=== PATIENT | female | born 1965 | race Caucasian/White ===

== ENCOUNTER 2023-05-15 15:27 | Inpatient (IN) | payer MEDICAID ==
[~2023-05-15] VITALS: Ht 149.9 cm; Wt 106.6 kg
[2023-05-15 16:13] LABS: BASOPHILS # (AUTO) 0.2 X10'3 (0-0.2); BASOPHILS % (AUTO) 1.2 % (0-1); EOSINOPHILS # (AUTO) 0.2 X10'3 (0-0.9); EOSINOPHILS % (AUTO) 1.2 % (0-6); HEMATOCRIT 43.1 % (35.0-45.0); HEMOGLOBIN 14.2 g/dl (12.0-16.0); LYMPHOCYTES # (AUTO) 3.4 X10'3 (1.1-4.8); LYMPHOCYTES % (AUTO) 20.6 % (21-51); MEAN CORPUSCULAR HEMOGLOBIN 26.5 PG (27.0-31.0); MEAN CORPUSCULAR HGB CONC 32.9 g/dL (33.0-36.5); MEAN CORPUSCULAR VOLUME 80.5 FL (78-98); MEAN PLATELET VOLUME 8.1 FL (7.4-10.4); MONOCYTES # (AUTO) 0.6 X10'3 (0-0.9); MONOCYTES % (AUTO) 3.4 % (2-12); NEUTROPHILS # (AUTO) 12.3 X10'3 (1.8-7.7); NEUTROPHILS % (AUTO) 73.6 % (42-75); PLATELET COUNT 461 X10'3 (140-440); RED BLOOD COUNT 5.35 X10'6 (4.20-5.60); RED CELL DISTRIBUTION WIDTH 16.1 % (11.5-14.5); WHITE BLOOD COUNT 16.6 X10'3 (4.5-11.0)
[2023-05-15 16:34] LABS: ALANINE AMINOTRANSFERASE 24 U/L (12-78); ALBUMIN 3.9 G/DL (3.4-5.0); ALBUMIN/GLOBULIN RATIO 1.1 (1.1-1.5); ALKALINE PHOSPHATASE 88 IU/L (46-116); ANION GAP 15 (8-16); ASPARTATE AMINO TRANSFERASE 13 U/L (10-37); BILIRUBIN,TOTAL 0.3 MG/DL (0.1-1.0); BLOOD UREA NITROGEN 8 MG/DL (7-18); CALCIUM 8.8 MG/DL (8.5-10.1); CHLORIDE 101 MMOL/L (99-107); CREATININE 0.89 MG/DL (0.40-0.90); GLUCOSE 198 MG/DL (70-104); POTASSIUM 3.1 MMOL/L (3.5-5.1); SODIUM 136 MMOL/L (135-145); TOTAL CARBON DIOXIDE 20.2 MMOL/L (24-32); TOTAL PROTEIN 7.5 G/DL (6.4-8.2); eCRCL 48 ML/MIN; eGFR 65 ML/MIN
[2023-05-15 16:35] LABS: PRO BRAIN NATRIURETIC PEPTIDE 63 PG/ML (0-125)
[2023-05-15 17:48] VITALS: TEMP 98.2
[2023-05-15] MEDS ORDERED: potassium Cl 20 mEq SR tablet PO STA (19:15)
[2023-05-15] MEDS ORDERED: azithromycin 250mg tablet PO ONE (19:25)
[2023-05-15] MEDS ORDERED: acetaminophen 325mg tablet PO ONE (19:25)
[2023-05-15] MEDS ORDERED: normal saline 1000ml 1,000 ML IV SCH ×2 (19:25→22:35)
[2023-05-15] MEDS ORDERED: LORazepam 1 MG tablet PO ONE (19:25)
[2023-05-15] MEDS ORDERED: ondansetron 4mg rapidly disintigrating tab PO ONE ×2 (19:45→21:35)
[2023-05-15] MEDS ORDERED: PANT20TA2 PO (19:52)
[2023-05-15] MEDS ORDERED: HYDR25CA PO (19:52)
[2023-05-15] MEDS ORDERED: ACET-812 PO (19:52)
[2023-05-15] MEDS ORDERED: AZIT250T PO (19:52)
[2023-05-15] MEDS ORDERED: ketorolac trometh. 30mg/ml inj. IV ONE (20:15)
[2023-05-15] MEDS ORDERED: famotidine/PF 10 mg/ml inj IV ONE (20:15)
[2023-05-15] MEDS ORDERED: LORazepam 2 mg/ml vial IV ONE (20:15)
[2023-05-15] MEDS ORDERED: ondansetron inj. 24 MG in normal saline 250ml IV soln 228 ML IV SCH (20:15)
[2023-05-15] MEDS ORDERED: azithromycin/NS 500mg/250ml 250 ML IV ONE (20:15)
[2023-05-15] MEDS ORDERED: PROM118S5 PO (20:21)
[2023-05-15] MEDS ORDERED: ONDA8TAB13 PO (20:21)
[2023-05-15] MEDS ORDERED: haloperidol lactate 5mg/ml inj IM ONE (21:35)
[2023-05-15] MEDS ORDERED: CefTRIAXone/D5W-Rocephin 1gm 50 ML IV ONE (22:20)
[2023-05-15] MEDS ORDERED: diphenhydrAMINE 50 mg/ml inj IV ONE (22:20)
[2023-05-15] MEDS ORDERED: proCHLORperazine 10 MG/2 ml inj IV ONE (22:45)
[2023-05-15] MEDS ORDERED: ondansetron/PF 4mg/2ml inj IV ONE (22:45)
[2023-05-15] MEDS ORDERED: iohexol 300mg/ml 100ml inj. ONE (22:47)
[2023-05-15] MEDS ORDERED: mag hydrox/Alum hydrox/simeth 30ml oral suspension PO PRN (23:50)
[2023-05-15] MEDS ORDERED: ondansetron/PF 4mg/2ml inj IV PRN (23:50)
[2023-05-15] MEDS ORDERED: acetaminophen 325mg tablet PO PRN (23:50)
[2023-05-15] MEDS ORDERED: metoclopramide 5 mg/ml inj IV PRN (23:50)
[2023-05-15] MEDS ORDERED: magnesium 4gm in 100ml NS 100 ML IV PRN (23:50)
[2023-05-15] MEDS ORDERED: magnesium Cl slow-release 64mg tablet PO PRN (23:50)
[2023-05-15] MEDS ORDERED: morphine 2 MG/ML inj. syringe IV PRN (23:50)
[2023-05-15] MEDS ORDERED: magnesium 2GM in 50ml NS 50 ML IV PRN (23:50)
[2023-05-15] MEDS ORDERED: magnesium hydroxide 30ml (MOM) UD suspension PO PRN (23:50)
[2023-05-15] MEDS ORDERED: potassium Cl 40MEQ/1/2NS 520ml 520 ML IV PRN (23:50)
[2023-05-15] MEDS ORDERED: potassium Cl 20 mEq SR tablet PO PRN ×2 (23:50)
[2023-05-15] MEDS ORDERED: SEMA1PEN3 SUBCUT (23:53)
[2023-05-15] MEDS ORDERED: GABA-530 PO (23:57)
[2023-05-15] MEDS ORDERED: MORP50CA PO (23:57)
[2023-05-16] MEDS: normal saline 1000ml 1,000 ML IV SCH ×2 (00:24→09:53)
[2023-05-16] MEDS: morphine 2 MG/ML inj. syringe IV PRN ×3 (00:38→14:20)
[2023-05-16] MEDS ORDERED: insulin Lispro (HumaLOG) vial - multi-dose SQ SCH (01:30)
[2023-05-16] MEDS ORDERED: dextrose 50%-water 50ml dispensing syringe IV PRN ×2 (01:30)
[2023-05-16] MEDS ORDERED: DEXTROSE 15 GM of carb/4 tabs (each vial/BOTTLE has 4 tablets) PO PRN ×2 (01:30)
[2023-05-16] MEDS ORDERED: glucagon, human recombinant 1mg kit SUBCUT PRN (01:30)
[2023-05-16] MEDS ORDERED: K and/or MAG REPLACEMENT MC SCH (08:00)
[2023-05-16] MEDS ORDERED: enoxaparin 40mg/0.4ml syringe SUBCUT SCH (08:00)
[2023-05-16 08:40] LABS: BASOPHILS # (AUTO) 0.1 X10'3 (0-0.2); BASOPHILS % (AUTO) 0.8 % (0-1); EOSINOPHILS # (AUTO) 0.1 X10'3 (0-0.9); HEMATOCRIT 40.3 % (35.0-45.0); HEMOGLOBIN 13.4 g/dl (12.0-16.0); LYMPHOCYTES # (AUTO) 1.8 X10'3 (1.1-4.8); MEAN CORPUSCULAR HEMOGLOBIN 26.5 PG (27.0-31.0); MEAN CORPUSCULAR HGB CONC 33.4 g/dL (33.0-36.5); MEAN CORPUSCULAR VOLUME 79.4 FL (78-98); MONOCYTES # (AUTO) 0.5 X10'3 (0-0.9); MONOCYTES % (AUTO) 3.5 % (2-12); NEUTROPHILS # (AUTO) 10.5 X10'3 (1.8-7.7); NEUTROPHILS % (AUTO) 80.7 % (42-75); PLATELET COUNT 377 X10'3 (140-440); RED BLOOD COUNT 5.07 X10'6 (4.20-5.60); RED CELL DISTRIBUTION WIDTH 15.8 % (11.5-14.5)
[2023-05-16 08:57] LABS: ALANINE AMINOTRANSFERASE 26 U/L (12-78); ALBUMIN 3.5 G/DL (3.4-5.0); ALKALINE PHOSPHATASE 85 IU/L (46-116); ANION GAP 10 (8-16); ASPARTATE AMINO TRANSFERASE 15 U/L (10-37); BILIRUBIN,TOTAL 0.4 MG/DL (0.1-1.0); BLOOD UREA NITROGEN 6 MG/DL (7-18); C-REACTIVE PROTEIN 1.31 MG/DL (0.0-0.5); CALCIUM 8.6 MG/DL (8.5-10.1); CHLORIDE 107 MMOL/L (99-107); CHOL/HDL RATIO 2.9 (0.00-4.99); CHOLESTEROL 123 MG/DL (0-200); CREATININE 0.67 MG/DL (0.40-0.90); GLUCOSE 117 MG/DL (70-104); HDL CHOLESTEROL 42 MG/DL (35-60); LDL CHOLESTEROL 58 MG/DL (50-100); MAGNESIUM 2.3 MG/DL (1.5-2.4); PHOSPHORUS 3.8 MG/DL (2.3-4.5); SODIUM 140 MMOL/L (135-145); TOTAL CARBON DIOXIDE 22.7 MMOL/L (24-32); TOTAL PROTEIN 6.9 G/DL (6.4-8.2); TRIGLYCERIDES 78 MG/DL (20-135); eCRCL 63 ML/MIN; eGFR > 90 ML/MIN
[2023-05-16 10:49] LABS: HEMOGLOBIN A1C 5.8 % (4.5-6.2)
[2023-05-16 11:28] LABS: FREE T4 (FREE THYROXINE) 1.23 NG/DL (0.73-1.40); THYROID STIMULATING HORMONE 1.44 ulU/ml (0.34-4.50)
[2023-05-16] MEDS ORDERED: LOP25T PO (13:40)
[2023-05-16] MEDS ORDERED: DULO-31 PO (13:40)
[2023-05-16] MEDS ORDERED: LEVO-65 PO (13:40)
[2023-05-16 14:21] VITALS: BP 140/79; PULSE 85; RESP 16; O2SAT 95
[2023-05-16] MEDS ORDERED: azithromycin/NS 500mg/250ml 250 ML IV SCH (20:00)
[2023-05-16] MEDS ORDERED: insulin glargine (Lantus) pen - multi-dose SQ SCH (21:00)
[2023-05-16] MEDS ORDERED: CefTRIAXone/D5W-Rocephin 1gm 50 ML IV SCH (22:00)
== END 2023-05-16 14:45 | disposition home or self-care (01) | DRG 139 ==
LOC: ER 15:28 → ED HOLD 23:57
PROVIDERS: ADMIT Family Medicine; ATTEND Family Medicine
PROC: BW251ZZ Computerized Tomography (CT Scan) of Chest, Abdomen and Pelvis using Low Osmolar Contrast (ICD-10-PCS; principal; 2023-05-15)
DX: J18.9 Pneumonia, unspecified organism (principal); E11.9 Type 2 diabetes mellitus without complications; M54.9 Dorsalgia, unspecified; F41.9 Anxiety disorder, unspecified; G89.29 Other chronic pain; F17.200 Nicotine dependence, unspecified, uncomplicated; E66.01 Morbid (severe) obesity due to excess calories; Z20.822 Contact with and (suspected) exposure to COVID-19; G47.33 Obstructive sleep apnea (adult) (pediatric); K21.9 Gastro-esophageal reflux disease without esophagitis; Z68.42 Body mass index [BMI] 45.0-49.9, adult; Z79.84 Long term (current) use of oral hypoglycemic drugs; Z88.0 Allergy status to penicillin; Z79.899 Other long term (current) drug therapy
CPT/HCPCS: 36415; 70450; 71045; 71260; 74177; 80053; 80061; 83036; 83735; 83880; 84100; 84145; 84439; 84443; 84484; 85025; 86140; 87502; 87503; 87811; 93005; 93306; 99285; G0378; J0456; J0696; J0780; J1200; J1630; J1650; J1885; J2060; J2270; J2405; J3490; J7030; Q9967

== ENCOUNTER 2023-07-01 08:20 | Day surgery (SDC) | payer MEDICAID ==
[2023-06-24 10:45] LABS: BASOPHILS # (AUTO) 0.1 X10'3 (0-0.2); BASOPHILS % (AUTO) 0.7 % (0-1); EOSINOPHILS # (AUTO) 0.3 X10'3 (0-0.9); EOSINOPHILS % (AUTO) 2.4 % (0-6); LYMPHOCYTES # (AUTO) 2.4 X10'3 (1.1-4.8); LYMPHOCYTES % (AUTO) 16.2 % (21-51); MEAN CORPUSCULAR HEMOGLOBIN 26.6 PG (27.0-31.0); MEAN CORPUSCULAR HGB CONC 33.2 g/dL (33.0-36.5); MEAN CORPUSCULAR VOLUME 79.9 FL (78-98); MEAN PLATELET VOLUME 7.7 FL (7.4-10.4); MONOCYTES # (AUTO) 0.5 X10'3 (0-0.9); MONOCYTES % (AUTO) 3.4 % (2-12); NEUTROPHILS # (AUTO) 11.3 X10'3 (1.8-7.7); NEUTROPHILS % (AUTO) 77.3 % (42-75); PRE OP HEMATOCRIT 41.7 % (35.0-45.0); PRE OP HEMOGLOBIN 13.9 g/dL (12.0-16.0); PRE OP PLATELET COUNT 415 X10'3 (140-440); PRE OP WHITE BLOOD COUNT 14.6 10'3 (4.8-10.8); RED BLOOD COUNT 5.22 X10'6 (4.20-5.60); RED CELL DISTRIBUTION WIDTH 16.1 % (11.5-14.5)
[2023-06-24 10:57] LABS: ALBUMIN 3.8 G/DL (3.4-5.0); ALBUMIN/GLOBULIN RATIO 1.1 (1.1-1.5); ALKALINE PHOSPHATASE 94 IU/L (46-116); BLOOD UREA NITROGEN 13 MG/DL (7-18); BUN/CREATININE RATIO 16.5 (10.0-20.0); CHLORIDE 106 MMOL/L (99-107); CREATININE 0.79 MG/DL (0.40-0.90); PRE OP ALT 25 U/L (30-65); PRE OP ANION GAP 11 (8-16); PRE OP AST 15 U/L (10-37); PRE OP BILIRUB, TOTAL 0.3 MG/DL (0.0-1.0); PRE OP GLUCOSE 130 MG/DL (70-104); PRE OP POTASSIUM 4.7 MMOL/L (3.4-5.1); PRE OP SODIUM 142 MMOL/L (135-145); TOTAL CARBON DIOXIDE 24.8 MMOL/L (24-32); TOTAL PROTEIN 7.2 G/DL (6.4-8.2); eGFR 75 ML/MIN
[2023-07-01] VITALS (12 sets, daily range): BP systolic 117–155; BP diastolic 61–84; PULSE 70–89; RESP 13–17; TEMP 98.2; O2SAT 94–97
[~2023-07-01] VITALS: Ht 149.9 cm; Wt 108.0 kg
[2023-07-01] MEDS: clindamycin-Cleocin 900mg/D5W 50 ML IV ONE (05:30)
[2023-07-01] MEDS: DOCUMENT DATE & TIME OF BETA-BLOCKER PO ONE (05:30)
[2023-07-01] MEDS: famotidine 20mg tablet PO ONE (05:30)
[~2023-07-01 08:20] MED LIST: ERGO500056 PO; GABA-530 PO; IBUPROFEN; METO50CA PO; MORP-92 PO; ringers solution, lacted 1,000 ML IV SCH
[2023-07-01] MEDS ORDERED: fentaNYL/PF 50MCG/1 ML 2ML syringe IV PRN ×2 (10:30)
[2023-07-01] MEDS ORDERED: ringers solution, lacted 1,000 ML IV SCH ×2 (10:30→11:35)
[2023-07-01] MEDS ORDERED: proCHLORperazine 10 MG/2 ml inj IV PRN ×2 (10:30→11:35)
[2023-07-01] MEDS ORDERED: fentaNYL/PF 50MCG/1 ML 2ML syringe ONE (10:54)
[2023-07-01] MEDS ORDERED: propofol inj 20 ML IV ONE (10:55)
[2023-07-01] MEDS ORDERED: midazolam 1 mg/ML 2ml injection ONE ×2 (10:55→11:03)
[2023-07-01] MEDS: BUPIVAcaine/PF 2.5mg/ml (0.25%) 10ml vial ONE (11:19)
[2023-07-01] MEDS: LIDOcaine 2% (20mg/ml) 5ml vial SQ ONE (11:20)
[2023-07-01] MEDS ORDERED: meperidine/PF 25mg/ml syringe IV PRN ×2 (11:35)
[2023-07-01] MEDS ORDERED: morphine 2 MG/ML inj. syringe IV PRN (11:35)
[2023-07-01] MEDS ORDERED: morphine 4 MG/ML inj SYRINge IV PRN (11:35)
[2023-07-01] MEDS ORDERED: ondansetron/PF 4mg/2ml inj IV PRN (11:35)
[2023-07-01] MEDS: meperidine/PF 25mg/ml syringe IV PRN (12:18)
[2023-07-01] MEDS: ondansetron/PF 4mg/2ml inj IV PRN (12:48)
[2023-07-01] MEDS ORDERED: LIDOcaine 2% (20mg/ml) 5ml vial ONE (13:53)
[2023-07-01] MEDS ORDERED: BUPIVAcaine/PF 2.5mg/ml (0.25%) 10ml vial ONE (13:53)
== END 2023-07-01 13:11 | disposition home or self-care (01) ==
LOC: PAS 08:20
PROVIDERS: ATTEND Orthopaedic Surgery Hand Surgery
DX: G56.02 Carpal tunnel syndrome, left upper limb (principal); M67.432 Ganglion, left wrist; G47.30 Sleep apnea, unspecified; I10 Essential (primary) hypertension; E11.9 Type 2 diabetes mellitus without complications; K21.9 Gastro-esophageal reflux disease without esophagitis; E66.9 Obesity, unspecified; Z68.42 Body mass index [BMI] 45.0-49.9, adult; Z90.49 Acquired absence of other specified parts of digestive tract; Z98.890 Other specified postprocedural states; Z87.891 Personal history of nicotine dependence; Z87.01 Personal history of pneumonia (recurrent); Z91.040 Latex allergy status; Z88.1 Allergy status to other antibiotic agents; Z88.0 Allergy status to penicillin; Z79.899 Other long term (current) drug therapy; Z98.1 Arthrodesis status; Z72.89 Other problems related to lifestyle
CPT/HCPCS: 25111; 36415; 64721; 80053; 82948; 85025; A6258; J2175; J2250; J2405; J2704; J3010; J3490; J7030; J7120; Z7506; Z7512; A4215; A6449